=== PATIENT | male | born 1965 | race Caucasian/White ===

== ENCOUNTER 2018-09-27 17:07 | Emergency (ER) | payer OTHER ==
[~2018-09-27] VITALS: Ht 167.6 cm; Wt 70.8 kg
[2018-09-27 17:34] VITALS: BP 151/95
[2018-09-27] MEDS ORDERED: DEXAMETHASONE 4 MG TABLET PO ONE (17:45)
[2018-09-27] MEDS ORDERED: HYDROcodone/APAP 5/325MG 1 TAB TABLET PO ONE (17:45)
[2018-09-27] MEDS ORDERED: HYDR-2155 PO (17:46)
[2018-09-27] MEDS ORDERED: PRED20TA PO (17:46)
--- NOTE | 2018-09-27 17:47 | PHYS DOC ---
Past History Past Medical History: No Pertinent History Past Surgical History: Tonsillectomy Smoking: Non-smoker Alcohol Use: None Drug Use: None Adult General Chief Complaint Chief Complaint: BACK PAIN OR INJURY HPI HPI 53-year-old male presents with report of neck and back pain. Patient reports has been progressively worsening over the last several months. Reports recently started having some sharp stabbing pain which radiated to his right hip. 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 Reports has been taking Flexeril, Naproxen, and Tylenol for pain. Reports currently pain not well controlled. Reports recent imaging of hip (XR) without known results at [place]. Denies loss of bowel/bladder. Reports pain better when standing. Denies rash. Denies fever/chills. Review of Systems Review of Systems Constitutional: Denies fever or chills Eyes: Denies redness or eye pain HENT: Denies nasal congestion or sore throat Respiratory: Denies cough or shortness of breath Cardiovascular: Denies chest pain or palpitations GI: Denies abdominal pain, nausea, or vomiting : Denies dysuria or hematuria Musculoskeletal: Reports neck and back pain with radiation to right hip Integument: Denies rash or skin lesions Neurologic: Denies headache, focal weakness or sensory changes Complete systems were reviewed and found to be within normal limits, except as documented in this note. Current Medications Current Medications Current Medications Medications (Trade) Dose Ordered Sig/Cesar Start Time Stop Time Status Last Admin Dose Admin Acetaminophen/ Hydrocodone Bitart (Lortab 5/325) 1 tab 1X ONCE 09/27/18 17:45 09/27/18 17:46 UNV Dexamethasone (Decadron) 10 mg 1X ONCE 09/27/18 17:45 09/27/18 17:46 UNV Allergies Allergies Allergies Coded Allergies Type Severity Reaction Last Updated Verified No Known Drug Allergies 09/27/18 No Physical Exam Physical Exam Constitutional: Well developed, well nourished, appears uncomfortable, non-toxic appearance HENT: Normocephalic, atraumatic, oropharynx moist Eyes: Conjunctiva normal, no discharge Neck: Normal range of motion, no midline tenderness, supple Cardiovascular: Heart rate normal, regular rhythm Lungs & Thorax: Bilateral breath sounds clear to auscultation, no wheezing Abdomen: Soft, no tenderness Skin: Warm, dry, no erythema, no rash Back: No midline tenderness, right paraspinal lumbar tenderness noted, no CVA tenderness Extremities: No tenderness, ROM intact, no edema, pain to back with straight leg raise Neurologic: Alert and oriented X 3, normal motor function, normal sensory function, no focal deficits noted Psychologic: Affect normal, judgement normal, mood normal Current Patient Data Vital Signs Vital Signs Date Time Temp Pulse Resp B/P (MAP) Pulse Ox O2 Delivery O2 Flow Rate FiO2 09/27/18 17:34 97.9 79 18 96 Room Air 09/27/18 17:14 151/95 (113) EKG EKG [] Radiology/Procedures Radiology/Procedures [] Course & Med Decision Making Course & Med Decision Making Patient presents with history of present illness and physical exam consistent for acute on chronic back pain. Likely some sciatica/radiculopathy. Limbs neurovascularly intact. Symptomatic treatment provided. Patient stable for discharge with outpatient follow-up with PCP. Discussed findings and plan with patient and family, who acknowledge understanding and agreement. Dragon Disclaimer Dragon Disclaimer This electronic medical record was generated, in whole or in part, using a voice recognition dictation system. Departure Departure: Impression: Primary Impression: Back pain with radiculopathy Disposition: HOME, SELF-CARE Condition: STABLE Referrals: PCP,DERRICK (PCP) Patient Instructions: Back Pain, Adult, [id number] Scripts Hydrocodone Bit/Acetaminophen (HYDROCODONE-APAP 5-325 ) 1 Each Tablet 0.5-1 TAB PO PRN Q6HRS PRN for PAIN, #14 TAB 0 Refills Prov: ARNAUD GONZALEZ DO 09/27/18 Prednisone (PREDNISONE) 20 Mg Tablet 2 TAB PO DAILY PRN for PAIN for 4 Days, #8 TAB Begin this medication tomorrow, 09/28 Prov: ARNAUD GONZALEZ DO 09/27/18 ARNAUD GONZALEZ DO September 27, 2018 17:47
== END 2018-09-27 18:01 | disposition home or self-care (01) ==
LOC: ER 17:07
DX: M54.16 Radiculopathy, lumbar region (principal); M54.89 Other dorsalgia; M54.2 Cervicalgia; M25.511 Pain in right shoulder
CPT/HCPCS: 99283; J8540